=== PATIENT | male | born 2000 | race Caucasian/White ===

== ENCOUNTER → 2020-03-30 | Outpatient (CLI) | payer OTHER ==
--- NOTE | 2020-03-30 11:55 | REP ---
Chest x-ray: Two views. History: Dyspnea on exertion . Comparison study: No comparison study . Findings: The lungs are well inflated and free of infiltrate. The pleural angles are sharp. The heart size is normal. Pulmonary vasculature is not increased. No significant bony abnormality is seen. Impression: Negative chest x-ray. Electronically Signed by Russell Warner MD 03/30/2020 11:46 A
== END ==
LOC: M LRY 11:32
PROVIDERS: ATTEND Nurse Practitioner Family
DX: R06.00 Dyspnea, unspecified (principal)
CPT/HCPCS: 71046; 82948; 93005; G0463

== ENCOUNTER → 2022-11-22 | Outpatient (CLI) | payer OTHER | LOC: M RAD 07:20 | PROVIDERS: ATTEND Physician Assistant | DX: M25.532 Pain in left wrist (principal); M65.832 Other synovitis and tenosynovitis, left forearm ==